=== PATIENT | male | born 1965 | race Caucasian/White ===

== ENCOUNTER 2025-08-09 16:48 | Emergency (ER) | payer BC, SELFPAY ==
[2025-08-09 16:55] VITALS: BP 150/111
--- NOTE | 2025-08-09 17:12 | ED.GENMED ---
History of Present Illness
General
Chief Complaint: Fall
Source: patient
Exam Limitations: none
Time Seen by Provider: 08/09/25 17:06
Nursing documentation reviewed up to this point in time: agreed with
History of Present Illness
History of Present Illness:
59-year-old male with no reported chronic medical issues not on any blood thinners presents to the emergency room for evaluation of left-sided rib pain and back pain after slip and fall. Patient reports he slipped on the snow/ice today and his legs
went out from under him and he fell directly on his left side with his elbow tucked up underneath him. He says he heard his ribs audibly crack and had immediate severe pain in the left ribs as well as in the left mid to low back. Pain is much
worse with movement, worse with breathing. He has associated shortness of breath. He says he had a very minor secondary head strike but did not lose consciousness denies significant headache and denies neck pain. He denies any pain in the
extremities. Denies numbness or weakness in extremities. He denies any other acute complaints.
Review of Systems
Review of Systems
All Other Systems: ROS reviewed and negative except as documented in HPI and ROS
Respiratory: Reports trouble breathing
Cardiac: Reports chest pain (Rib pain)
ABD/GI: Denies abdominal pain, nausea or vomiting
: Reports flank pain
Musculoskeletal: Reports back pain; Denies joint pain or neck pain
Neurological: Denies dizzy or headache
Phy Exam
Physical Exam
Physical Exam:
General: Awake, alert, oriented x3; appears moderately uncomfortable
Head: Normocephalic, atraumatic
Eyes: Conjunctiva normal, pupils equal round and reactive to light bilaterally
Throat: Airway intact, handling secretions
Neck: Trachea midline, no cervical spine tenderness, good range of motion without any pain on rotation, flexion or extension
Back: No bruising or abrasions to the back or flank and no midline thoracic or lumbar tenderness; he does have paraspinal tenderness on the left side in the lower thoracic/upper lumbar region and tenderness in the lower posterior ribs as well
Lungs: Bilateral breath sounds noted, lungs are clear to auscultation bilaterally, no wheezing, rales, rhonchi
Heart: Regular rate and rhythm, no murmurs, gallops, or rubs; he has left anterior mid to lower rib pain midaxillary line, no crepitus or bruising noted to the chest wall
Abd: Soft, non distended, nontender
Neuro: Grossly intact
Skin: No large bruises, lacerations or abrasions noted
Extremities: Atraumatic, warm and well-perfused, moves all extremities equally without apparent pain in the extremities although he has pain moving the torso in his left ribs
Scores
Heart Failure Risk
Heart Failure Risk Score: Not Applicable
Heart Score for Chest Pain Patients
STEMI patient?: Not applicable
Withdrawal Assessment of Alcohol
Withdrawal Assessment Completed?: Not applicable
Course
Orders/Labs/Results
Orders:
Orders
08/09/25 17:10
CT Chest/abd/pel W Iv Cont Urgent
Comment:
Reason For Exam: left chest + back pain s/p fall; heard ribs crack
08/09/25 17:11
HYDROmorphone [Dilaudid] 0.5 mg IV NOW STA
08/09/25 17:12
CR Chest Portable - 1 View Urgent
Comment:
Reason For Exam: sob and chest pain s/p fall
Reason Study Needs to be Portable: Unable to Transport
08/09/25 17:17
Complete Blood Count/With Diff Urgent
Comprehensive Metabolic Panel Urgent
08/09/25 19:45
Ketorolac [Toradol] 15 mg IV NOW STA
Abnormal Lab Results
08/09/25
17:17
MPV 10.6 H fL
(7.4-10.4)
Absolute Monos (auto) 0.8 H 10^3/uL
(0.1-0.6)
Monocytes % 10.0 H %
(1.7-9.3)
Eosinophils % 6.6 H %
(0-6)
Glucose 104 H mg/dl
(70-99)
08/09/25 17:17
08/09/25 17:17
Vital Signs
Initial and Last Documented VS:
Initial Vital Signs
Temp Pulse Resp BP Pulse Ox
36.9 C 52 22 150/111 99
08/09/25 16:55 08/09/25 16:55 08/09/25 16:55 08/09/25 16:55 08/09/25 16:55
Last Documented Vital Signs
Temp Pulse Resp BP Pulse Ox
36.9 C 49 16 143/86 99
08/09/25 16:55 08/09/25 19:34 08/09/25 19:34 08/09/25 19:34 08/09/25 19:34
MDM/Problems Addressed
Differential Diagnosis Includes:
Rib fracture, bruised ribs, pneumothorax, hemothorax, flank hematoma, vertebral fracture, muscular strain
MDM/Problems Addressed:
59-year-old male presents after a slip and fall directly onto his left ribs. He says he audibly heard his ribs crack and has had significant pain, difficulty breathing since. He is hypertensive appears very uncomfortable; no tachypnea or hypoxia.
Bilateral breath sounds are present. Exam as noted. Will plan to place an IV send basic labs. Stat portable chest x-ray to evaluate for pneumothorax. Plan for CT of the chest/abdomen/pelvis. Provide IV pain control. Considered need for CT
head/cervical spine but this was a ground-level fall with only minor reported head strike and no loss of consciousness. He has no objective signs of head trauma, no headache or neck pain, no tenderness of the neck with range of motion of the neck.
He has not any nausea or vomiting. He is not on any blood thinners. At this point no indication for emergent head or neck imaging�[place] head CT and [place] C-spine rules support this.
Labs reviewed and no clinically significant abnormalities. CT chest/abdomen/pelvis shows nondisplaced fracture 11th rib but no posttraumatic pathology in the abdomen or pelvis. Pain better controlled here in ER after medications. Stable for
discharge with supportive care. He did have severe pain requiring opioid pain control, will prescribe short course of opioids on an as-needed basis to supplement Tylenol/ibuprofen. Spoke about follow-up plan and return precautions and all
questions answered.
Acute Exacerbation and/or Progression of Chronic Illness:
Acutely hypertensive likely pain related�treat pain but no emergent antihypertensives indicated at this point
Acute Exacerbation and/or Progression of Chronic Illness: HTN
*Radiology
Radiology exam reviewed: preliminary read by ED provider and radiology read reviewed
*Pulse Oximetry
SaO2: 99
Oxygen Mode of Delivery: Room air
Patient hypoxic: no (99%)
*Critical Care Note
Total Time (30-74mins, 75-104mins- exclusive of procedures): Not Applicable
Data Reviewed
Source: patient
ED Attending Note
-
Portions of this chart may have been created with voice recognition software.� Occasional wrong word or��sound alike� substitutions may have occurred due to the inherent limitations of voice recognition software.
Discharge Plan
Departure
Patient Disposition: Home (Routine Discharge)
Date of Disposition: 08/09/25
Time of Disposition: 20:01
Patient with high blood pressure during this ER visit?: Yes
Discharge Problem:
Fracture of rib
Instructions: Rib fracture or bruised rib - ED (DC)
Prescriptions:
New
oxycodone 5 mg tablet
5 mg PO Q6H PRN (Reason: Pain) Qty: 10 0RF
lidocaine [Lidocan III] 5 % adhesive patch,medicated
1 patch topical DAILY Qty: 15 0RF
Referrals:
Romi Tobar DO [Family Provider, Family Practice] - Follow up in 5-7 days
Activity Restrictions/Additional Instructions:
You were seen in the emergency room after a fall and you are found to have a broken rib on the left side. The main treatment for rib fractures is to control your pain while your rib heals. In order to do this you should take the following
medications:
Ibuprofen 400 mg every 6 hours
Tylenol 1000 mg every 6 hour
Lidoderm patch applied to area of maximal pain once daily
Oxycodone 5 mg tablet up to every 6 hours as needed for severe pain refractory to above medications
You should follow-up with your primary doctor to be rechecked next week. If you notice your symptoms are worsening or develop new symptoms that are concerning to you please return to the ER.
Incidentally they did note a large renal cyst on your CT�this should be followed up by your primary doctor. A copy of your CT report was provided for your primary provider to review all incidental findings.
Thank you for visiting the Emergency Department at [facility].
1. Please schedule a follow up appointment as directed. Call first thing tomorrow morning to make an appointment.
2. If indicated, please take your medications as instructed and indicated on discharge paperwork.
3. If any of your symptoms do not improve, or persist, or become more severe within 6-12 hours, please return to the emergency department for further care.
4. Please return to the emergency department if you develop a headache, neck pain/stiffness, fever greater than 100.4F, chest pain, shortness of breath, persistent nausea, vomiting, slurred speech, difficulty walking, numbness/tingling, weakness,
signs of infection or any other symptoms that are worrisome to you.
Please call [phone] if you have any questions.
Interventions
Interventions:
*General Assessment Last Done: 08/09/25 17:07
*Neglect/Abuse Screening Last Done: 08/09/25 17:07
*ED COVID-19 Vaccine History Last Done: 08/09/25 17:07
*ED Influenza Vaccine History Last Done: 08/09/25 17:07
[facility] Risk Assessment Tool Last Done: 08/09/25 18:39
*Risk Screen - Suicide (C-SSRS) Last Done: 08/09/25 16:58
ED-Musculoskeletal Assessment Last Done: 08/09/25 19:57
ED- Neurological Assessment Last Done: 08/09/25 19:57
ED-Skin Assessment Last Done: 08/09/25 19:57
Discharge Date and Time
Print Language: COMORAN
[2025-08-09] MEDS: DILAUDID 0.5 MG IV (17:15)
[2025-08-09 17:33] LABS: Hematocrit 44.9 % (39.0-52.0); Hemoglobin 15.5 g/dL (13.0-18.0); Mean Corp Hgb Conc. 34.5 g/dL (33.0-37.0); Mean Corpuscular Volume 85.7 fL (80.0-94.0); Nucleated Red Blood Cells % 0 % (-); Platelet Count 264 10^3/uL (130-400); Red Cell Dist. Width 12.6 % (11.5-14.5)
[2025-08-09 17:43] LABS: ALT (SGPT) 26 U/L (0-50); AST (SGOT) 28 U/L (17-59); Albumin 4.6 g/dl (3.5-5.0); Alkaline Phosphatase 76 U/L (38-126); Blood Urea Nitrogen 20 mg/dl (9-20); Calcium 9.3 mg/dl (8.4-10.2); Carbon Dioxide 28 mmol/L (22-30); Chloride 102 mmol/L (98-107); Glucose 104 mg/dl (70-99); Potassium 4.3 mmol/L (3.5-5.1); Sodium 137 mmol/L (135-145); Total Protein 7.5 g/dl (6.3-8.2); eGFR > 60.00
[2025-08-09 19:34] VITALS: BP 143/86
[2025-08-09] MEDS: TORADOL 15 MG IV (19:52)
[2025-08-09 20:00] VITALS: BP 142/90
== END 2025-08-09 20:19 | disposition home or self-care (01) ==
LOC: EMR 16:48
PROVIDERS: EMERGENCY PHYSICIAN Emergency Medicine; FAMILY PHYSICIAN Family Medicine
DX: S22.32XA Fracture of one rib, left side, initial encounter for closed fracture (principal); W01.10XA Fall on same level from slipping, tripping and stumbling with subsequent striking against unspecified object, initial encounter
CPT/HCPCS: 99284; 96374; 96375; 71045; 71260; 74177; 80053; 85025; Q9967